=== PATIENT | female | born 1985 | race Native Hawaiian/Other Pacific Islander ===

== ENCOUNTER 2016-08-15 19:11 | Inpatient (IN) | payer OTHER ==
[2016-08-15 19:43] VITALS: BMI 30.2
[2016-08-15] MEDS ORDERED: Lactated Ringer's 1,000 ML IV SCH (20:00)
[2016-08-15 20:12] LABS: BASO # 0.1 K/uL (0.0-0.2); BASO % 0.4 % (0.0-2.0); EOS % 0.2 % (0.0-4.0); HEMATOCRIT 42.3 % (34.0-47.0); LYMPH # 1.7 K/uL (1.0-4.3); LYMPH % 14.7 % (20.0-40.0); MEAN CELL VOLUME 82.3 fL (81.0-99.0); MEAN CORPUSCULAR HEMOGLOBIN 27.1 pg (27.0-31.0); MEAN CORPUSCULAR HGB CONC 32.9 g/dL (33.0-37.0); MEAN PLATELET VOLUME 11.3 fL (7.2-11.7); MONO # 0.6 K/uL (0.0-0.8); MONO % 4.9 % (0.0-10.0); NRBC % 0.1 % (0.0-2.0); RED CELL DISTRIBUTION WIDTH 14.6 % (11.5-14.5); WHITE BLOOD COUNT 11.4 K/uL (4.8-10.8)
[2016-08-15 20:21] LABS: CHLORIDE 99 mmol/L (98-107); POTASSIUM 5.4 mmol/L (3.6-5.2); SODIUM 135 mmol/L (132-148)
[2016-08-15 20:24] LABS: ALKALINE PHOSPHATASE 121 U/L (38-126); ALT/SGPT 8 U/L (9-52); AST/SGOT 55 U/L (14-36); BILIRUBIN,TOTAL 1.7 mg/dL (0.2-1.3); BLOOD UREA NITROGEN 6 mg/dL (7-17); CARBON DIOXIDE 22 mmol/L (22-30); GFR AFRICAN-AMERICAN > 60; GLUCOSE,RANDOM 83 mg/dL (65-105); TOTAL PROTEIN 8.3 g/dL (6.3-8.3)
--- NOTE | 2016-08-15 20:41 | OBHP ---
Datetime: 08/15/2016 19:40 IP Adm Impression: Term, intrauterine ; Active labor; Intact Membranes IP Admit Plan: Admit to unit; Initiate labor protocol Admit Comment, IP Provider: 31 yo , LMP 11/12/15, EDNA 08/18/26, EGA 39w 4d c/o contraactins since midnight; now 9/10 pain sclae and every 4-5 minutes. (+) AFM; denies LOF, VB. care: Dr. Andrei Armijo; 1) abnl QUAD screen - normal F/U ultrasound. 2) E. coli bacteriuria. 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 x 6 1/2 years. Banker by profession; out of work since 06/2016 Fam Hx: Mother alive 66 - no med issues. Father age 66 - renal CA. ??PGF - unk CA P.E.: as above. WD in pain with contractions. Awake, alert, oriented to time, person and place. Ac companied by and mother. Assessment: 31 y.o. P0, 39w 4d, active labor. GBS negative. Clinically stable. Plan: 1) Admit 2) NPO 3) Continuous EFM 4) Admission labs 5) Epidural, upon request 6) Anticipate vaginal delivery - As discussed with Dr. Armijo Pelvic Type - PN: Adequate Extremities - PN: Normal Abdomen - PN: Normal Back - PN: Normal Breast - PN: Not Done Lungs - PN: Normal Heart - PN: Normal Thyroid - PN: Not Done Neurologic - PN: Normal HEENT - PN: Normal General - PN: Normal Presentation-Admit: Vertex FHR - Baseline A Provider: 140 Contraction Comments Provider: 1-3 Comments, ACOG Physical Exam: Skin: warm, dry, intact HEENT: full ROM Lungs: CTA bilaterally Cardiac: RRR, normal S1, S2 Abdomen: Gravid, firm with contractions. Fundal height 37 cm. : no masses or discharge Extremities: no calf tenderness, cyanosis or edema All other systems reviewed and are negative Gestation - Est Wks by US: 39w 4d IP Hx Assessment: The History has been Reviewed and is Current EGA AdmitDate IP: 39.4 Vital Signs Provider: Reviewed IP Indication for Induction: Not Applicable IP Chief Complaint: Uterine contractions NICHD Variability Prov Fetus A: Moderate 6-25bpm NICHD Accel Fetus A IP Provider: 15X15 FHR Category Provider Fetus A: Category I NICHD Decel Fetus A IP Provider: None Dilatation, Provider: 7 Effacement, Provider: 90 Station, Provider: -2 Genitourinary Exam: Normal DTRs - PN: Not Done
[2016-08-15] MEDS ORDERED: Bupivacaine 0.125%/FentaNYL 200 ML EPI ONE (21:07)
--- NOTE | 2016-08-15 21:45 | OBPN ---
Datetime: 08/15/2016 21:37 IP Progress Plan: Continue present management; Anticipate Vaginal Delivery Membranes, Provider: Intact Contraction Comments Provider: 1-2 IP Progress Note Comment: FHR tracing noted for deceleration to 80 bpm x 2 min V.E.: as above. Assessment: 31 yo P1011, nearing end of Stage 1 of labor. Tracing appropriate for labor progress. Clinically stble. Plan: 1) Anticipate vaginal delivery - Dr. Armijo to be informed Dilatation, Provider: ant lip Effacement, Provider: 100 Station, Provider: 0 Datetime: 08/15/2016 19:40 FHR - Baseline A Provider: 140 Gestation - Est Wks by US: 39w 4d Presentation-Admit: Vertex Vital Signs Provider: Reviewed NICHD Accel Fetus A IP Provider: 15X15 FHR Category Provider Fetus A: Category I NICHD Variability Prov Fetus A: Moderate 6-25bpm NICHD Decel Fetus A IP Provider: None
[2016-08-15] MEDS ORDERED: Lidocaine 2% Inj (20ml) ONE (22:47)
--- NOTE | 2016-08-15 23:00 | OBPN ---
Datetime: 08/15/2016 22:56 IP Progress Impression: Normal progression of labor IP Informed Consent Obtain: Vaginal Delivery; Risks, Benefits and Alternatives Discussed IP Procedures: Artificial ROM IP Progress Plan: Continue present management Pool Provider: Positive Membranes, Provider: Ruptured Amniotic Fluid Color, Provider: Clear Contraction Comments Provider: q 2-3 min FHR - Baseline A Provider: 130 Gestation - Est Wks by US: 39.4 Presentation-Admit: Vertex IP Progress Note Comment: pt seen and examined reports feeling pain, s/p epidural , +LOF, +FM VSS VE: 10/100/0 AROM, VClear A/P @ 39.4 wks GA fully dilated -s/p AROM -s/p Epidural -start pushing --anticipate Vital Signs Provider: Reviewed; Within Normal Limits FHR Category Provider Fetus A: Category I NICHD Variability Prov Fetus A: Moderate 6-25bpm Dilatation, Provider: 10 Effacement, Provider: 100 Station, Provider: 0 NICHD Decel Fetus A IP Provider: None
[2016-08-16] MEDS ORDERED: Benzocaine/Menthol 20%-0.5% Topical Spray (60 ml) TOP PRN (00:16)
[2016-08-16] MEDS ORDERED: Oxycodone/Acetaminophen 5/325 mg Tab PO PRN ×2 (00:16)
--- NOTE | 2016-08-16 00:23 | OBDS ---
DELIVERY PERSONNEL Delivery Doctor: Carmelo Armijo MD Creamery Worker: Patricia Covington RN Anesthesiologist: Jose Luis Cam MD MATERNAL INFORMATION Delivery Anesthesia: Epidural Medications in Delivery: pitocin 20 units Placenta Cultured: Yes Maternal Complications: None RN Comments: to a live baby girl with 01/24 Provider Comments: pt was fully dilated, atrumatic, spontaneous deliveyr of head in [place] postion with nuchal x 1 tight, loosened, delivered, atruamtic, spontanoeus delivery of anterior followed by poste iroe shoulder followed by deliveyr of ru body. Both oral and nasal passages of ru baby were bulb perry ctioned. Umbilcal cord was clamped and cut. Baby was handed mother on abodmen with RN assistance. Co rd blood and cord gases collected and sent x 2. Sponteanous delivery of intact placent with membrane s. Fundus Firm. Second degree perineal laceration noted and repaired with 2-0 and 3-[address] after lidocaine administered. Good hemostasis, no complications. live female infant apgars 9,9 weight of 7lbs 6 ounces ebl 350ml delivery time 23:48 08/15 LABOR SUMMARY EDC: 08/18/2016 00:00 LABOR INFORMATION Group B Beta Strep: Negative MEMBRANES Membranes Rupture Method: Artificial Rupture of Membranes: 08/15/2016 22:35 Length of Rupture (hrs): 1.15 Amniotic Fluid Color: Clear Amniotic Fluid Amount: Moderate Amniotic Fluid Odor: Normal STAGES OF LABOR Stage 3 hrs: 0 Stage 3 min: 4 VAGINAL DELIVERY Laceration Repair Note: 2nd degree with local ane Sponge Count Correct: Yes Sharps Count Correct: Yes BABY A INFORMATION Infant Delivery Date/Time: 08/15/2016 23:44 Method of Delivery: Vaginal Born in Route : No : N/A Forceps: N/A Vacuum Extraction: N/A Shoulder Dystocia : No SHOULDER DYSTOCIA BABY A Infant Delivery Date/Time: 08/15/2016 23:44 PRESENTATION/POSITION BABY A Presentation: Cephalic Cephalic Presentation: Vertex Vertex Position: Left Occipital Anterior Breech Presentation: N/A PLACENTA INFORMATION BABY A Placenta Delivery Time : 08/15/2016 23:48 Placenta Method of Delivery: Manual Removal Placenta Status: Delivered SCORES BABY A Heart Rate 1 min: >100 bpm Resp Effort 1 min: Good Cry Reflex Irritability 1 min: Cough or Sneeze or Pulls Away Muscle Tone 1 min: Active Motion Color 1 min: Body Kouts, Extremities Blue SCORE 1 MIN: 9 Heart Rate 5 min: >100 bpm Resp Effort 5 min: Good Cry Reflex Irritability 5 min: Cough or Sneeze or Pulls Away Muscle Tone 5 min: Active Motion Color 5 min: Body Kouts, Extremities Blue SCORE 5 MIN: 9 INFANT INFORMATION BABY A Gestational Age at Delivery: 39.4 Gestational Status: Term Outcome : Liveborn Condition : Stable Infant Sex: Female IDENTIFICATION/MEDS BABY A ID Band Number: [id number] ID Band Location: Left Leg; Left Arm Sensor Applied: Yes Sensor Number: [id number] WEIGHT/LENGTH BABY A Infant Birthweight (gms): 3345 Weight (lb): 7 Infant Weight (oz): 6 CORD INFORMATION BABY A No. Cord Vessels: 3 Nuchal Cord : Around Neck x1, Loose Cord Blood Taken: Yes Suction: Mouth; Nose ASSESSMENT BABY A Infant Complications: None Infant Complications Other: none Physical Findings at Delivery: Within Normal Limits Classics Professor/ALS Called : No Infant Care By: Kezia SOSA Transferred To: Remains with Mother
[2016-08-16] MEDS ORDERED: Oxytocin 30 UNIT 1,000 ML IV SCH (00:30)
[2016-08-16 08:25] LABS: BASO % 0.3 % (0.0-2.0); EOS % 0.1 % (0.0-4.0); HEMATOCRIT 33.9 % (34.0-47.0); LYMPH # 1.7 K/uL (1.0-4.3); LYMPH % 14.1 % (20.0-40.0); MEAN CELL VOLUME 81.9 fL (81.0-99.0); MEAN CORPUSCULAR HEMOGLOBIN 26.7 pg (27.0-31.0); MEAN CORPUSCULAR HGB CONC 32.6 g/dL (33.0-37.0); MEAN PLATELET VOLUME 10.4 fL (7.2-11.7); MONO # 0.7 K/uL (0.0-0.8); MONO % 5.7 % (0.0-10.0); RED CELL DISTRIBUTION WIDTH 14.5 % (11.5-14.5); WHITE BLOOD COUNT 12.3 K/uL (4.8-10.8)
[2016-08-16 08:34] LABS: CHLORIDE 102 mmol/L (98-107); POTASSIUM 3.4 mmol/L (3.6-5.2); SODIUM 135 mmol/L (132-148)
[2016-08-16 08:37] LABS: BLOOD UREA NITROGEN 4 mg/dL (7-17); CARBON DIOXIDE 22 mmol/L (22-30); GFR AFRICAN-AMERICAN > 60
[2016-08-16 08:38] LABS: CALCIUM 8.4 mg/dl (8.6-10.4); GLUCOSE,RANDOM 90 mg/dL (65-105)
[2016-08-16] MEDS: Multiple Vitamins Tab PO SCH (09:09)
--- NOTE | 2016-08-16 09:29 | OBPPN ---
Datetime: 08/16/2016 09:23 PP Pain Prov: Within normal limits PP Nausea Prov: Denies PP Flatus Prov: Yes PP BM Prov: No PP Breasts Prov: Normal PP Heart Prov: Normal PP Lungs Prov: Normal PP Abdomen/Uterus Prov: Normal PP Lochia Prov: Normal PP CVA Tenderness Prov: Normal PP Extremities Prov: Normal PP C/S Incision Prov: Not Applicable PP Progress Prov: Normal PP Impression Prov: Normal progression PP Plan Prov: Continue present management PP Progress Note Prov: S-patient denies any compalints.reports that pain is well controlled.Denies n ausea, vomiting, headache, chest pain, shortness of breath, numbness or tingling in hands and feet O-VSS afebrile Fundus firm and below umbilcius Extremities no calf tendernes A/P Patient s/p vaginal delivery PPD 1 doing well -continue routine pp care -follow up am [facility] Vital Signs Provider PP: Reviewed; Within Normal Limits
[2016-08-16 18:13] VITALS: O2SAT 99
[2016-08-17 07:49] VITALS: BP 114/72; PULSE 70; RESP 18; TEMP 99
--- NOTE | 2016-08-17 08:17 | OBPPN ---
Datetime: 08/17/2016 08:14 PP Pain Prov: Within normal limits PP Nausea Prov: Denies PP Heart Prov: Normal PP Lungs Prov: Normal PP Abdomen/Uterus Prov: Normal PP Lochia Prov: Normal PP CVA Tenderness Prov: Normal PP Extremities Prov: Normal PP C/S Incision Prov: Not Applicable PP Progress Prov: Normal PP Impression Prov: Normal progression PP Plan Prov: Discharge PP Progress Note Prov: S-patient denies any compalints.reports that pain is well controlled.Denies n ausea, vomiting, headache, chest pain, shortness of breath, numbness or tingling in hands and feet O-VSS afebrile Fundus firm and below umbilcius Extremities no calf tendernes A/P Patient s/p vaginal delivery PPD 2 doing well -discharge today -follow up with dr crowley in 6 weeks Vital Signs Provider PP: Reviewed; Within Normal Limits
--- NOTE | 2016-08-17 08:26 | OBDCSUM ---
Datetime: 08/17/2016 08:13 Discharged to, Provider: Home Follow up at, Provider: Dr Armijo Disch Instr Activity: Normal activity; May Shower Disch Instr Diet: Regular Discharge Diet restrict Prov: none Discharge Instructions, Provider: Routine instructions given Discharge Diagnosis, Provider: Term Delivered Discharge Time: 08/17/2016 11:00 Follow up in weeks, Provider: 6 weeks Disch Referrals: None Disch Activity Restrictions: No sexual activity; Nothing in vagina - Antares, tampons, douche Discharge Comment, Provider: go to the er if you have fever, severe pain,heavy bleeding or any other problems Discharge Diagnosis Prov Other: s/p vaginal delivery
[2016-08-17] MEDS: Multiple Vitamins Tab PO SCH (09:05)
== END 2016-08-17 17:16 | disposition home or self-care (01) | DRG 775 ==
LOC: C.EROB 19:11 → C.4LDOR 19:30 → C.4D 20:35 → C.4M 08-16 02:09
PROVIDERS: ADMIT Obstetrics & Gynecology; ATTEND Obstetrics & Gynecology
PROC: 10E0XZZ Delivery of Products of Conception, External Approach (ICD-10-PCS; principal; 2016-08-15)
PROC: 0KQM0ZZ Repair Perineum Muscle, Open Approach (ICD-10-PCS; 2016-08-15)
PROC: 10907ZC Drainage of Amniotic Fluid, Therapeutic from Products of Conception, Via Natural or Artificial Opening (ICD-10-PCS; 2016-08-15)
DX: O69.1XX0 Labor and delivery complicated by cord around neck, with compression, not applicable or unspecified (principal); O70.1 Second degree perineal laceration during delivery; Z3A.39 39 weeks gestation of pregnancy; Z37.0 Single live birth